=== PATIENT | male | born 1965 | race Caucasian/White ===

== ENCOUNTER 2020-02-15 10:38 | Outpatient (CLI) | payer OTHER, SELFPAY ==
--- NOTE | 2020-02-15 10:51 | XR_ITS ---
WS: [id number] Left shoulder, 3 views, 02/15/2020 Clinical Data: SHOULDER PAIN LEFT Comparison: None. Findings: No fractures or dislocations are seen. The AC joint is normal. The adjacent left clavicle, left scapu la and ribs are normal. The soft tissues are unremarkable. XR/XR shoulder LT min 2V* [id number] Impression: Negative left shoulder.
== END 2020-02-15 10:39 | disposition home or self-care (01) ==
PROVIDERS: PCP Electrodiagnostic Medicine; Visit Provider Electrodiagnostic Medicine
DX: M25.512 Pain in left shoulder (principal)
CPT/HCPCS: 73030

== ENCOUNTER → 2022-07-10 15:37 | Outpatient (BNVA) | payer OTHER, SELFPAY | PROVIDERS: PCP Electrodiagnostic Medicine; Visit Provider Registered Nurse Neonatal Intensive Care | DX: M17.12 Unilateral primary osteoarthritis, left knee (principal) | CPT/HCPCS: 73562 ==